=== PATIENT | male | born 1940 | race Caucasian/White ===

== ENCOUNTER 2021-11-11 12:28 | Outpatient (CLI) | payer MEDICARE, SELFPAY ==
--- NOTE | ~2021-11-11 | MR_ITS ---
EXAMINATION: MR brain IAC wo/w con DATE: 11/11/2021 13:56 INDICATION: Asymmetric hearing loss. TECHNIQUE: Magnetic resonance imaging (MRI) of the brain, brainstem, and internal auditory canals was performed without and with 16 mL MultiHance intravenous contrast. COMPARISON: None. FINDINGS: There is no intracranial hemorrhage, acute infarction, or abnormal intracranial mass lesion . The ventricles are normal in size. The internal auditory canals and inner ears are normal. There is a left mastoid effusion. The orbits are normal. There is mild mucosal thickening in the paranasal si nuses. IMPRESSION: 1. Normal brain. 2. Left mastoid effusion. Reviewed, dictated and finalized at location A.
== END 2021-11-11 12:29 | disposition home or self-care (01) ==
DX: H91.8X9 Other specified hearing loss, unspecified ear (principal); H92.02 Otalgia, left ear
CPT/HCPCS: 70553; A9577

== ENCOUNTER 2021-12-15 22:57 | Emergency (ER) | payer MEDICARE, SELFPAY ==
--- NOTE | ~2021-12-15 | XR_ITS ---
EXAMINATION: XR chest 2V DATE: 12/15/2021 23:18 INDICATION: Chest pain TECHNIQUE: frontal and lateral views of the chest were obtained. COMPARISON: Chest CT dated 08/14/2015 FINDINGS: Chronic eventration of the right hemidiaphragm. Minimal atelectasis at the right costophrenic angle. No other airspace opacities, pulmonary edema, pleural effusion or pneumothorax. Heart size is normal. Tortuous thoracic aorta. Small hiatal hernia. Severe thoracolumbar spondylosis. Suggestion of possi ble bilateral rotator cuff arthropathy. IMPRESSION: 1. Chronic eventration of the right hemidiaphragm with minimal right basilar atelectasis. 2. Small hiatal hernia. Reviewed, dictated and finalized at location A. IMPRESSION: 1. Chronic eventration of the right hemidiaphragm with minimal right basilar at electasis. 2. Small hiatal hernia.
--- NOTE | 2021-12-15 22:59 | ECG_ITS ---
Measurements Intervals [place] Rate: 63 P: 41 ME: 234 QRS: -18 QRSD: 166 T: 133 QT: 441 QTc: 452 Interpretive Statements SINUS RHYTHM WITH FIRST DEGREE AV BLOCK LEFT BUNDLE BRANCH BLOCK ABNORMAL ECG NO PREVIOUS ECG AVAILABLE FOR COMPARISON Electronically Signed On 12-16-2021 14:59:50 CDT by Kaveh Medina M.D.
[2021-12-15 23:22] VITALS: BP 185/88; PULSE 64; RESP 18; TEMP 36.4; O2SAT 99
[2021-12-15 23:37] LABS: Basophils Percent Auto 0.7 % (0.2-1.2); Eosinophils Absolute Auto 0.2 K/mm3 (0-0.3); Eosinophils Percent Auto 2.9 % (0-4.4); Hematocrit 40.2 % (42.0-52.0); Hemoglobin 13.7 g/dL (14.0-18.0); Immature Granulocyte Absolute 0.03 K/mm3 (0.00-0.031); Immature Granulocyte Percent A 0.5 % (0-0.5); Lymphocytes Absolute Auto 1.53 K/mm3 (0.9-3.2); Lymphocytes Percent Auto 26.1 % (18.3-44.2); Mean Corpuscular HGB Conc 34.1 g/dl (32-36); Mean Corpuscular Hemoglobin 30.6 pg (26-34); Mean Corpuscular Volume 89.9 fl (80-100); Mean Platelet Volume 8.9 fl (7.4-10.4); Monocytes Absolute Auto 0.5 K/mm3 (0.1-0.6); Neutrophils Absolute Auto 3.6 K/mm3 (1.3-6.7); Neutrophils Percent Auto 60.8 % (45.5-73.1); Platelet Count Result 175 k/mm3 (150-375); Red Blood Count 4.47 M/mm3 (4.6-6.20); Red Cell Distribution Width 13.6 % (11.5-14.5); White Blood Count 5.9 K/mm3 (4.5-10.0)
[2021-12-15 23:51] LABS: Alanine Aminotransferase 24 U/L (6-50); Albumin Level 4.3 g/dL (3.5-5.1); Alkaline Phosphatase 68 U/L (38-126); Anion Gap 11 mmol/L (8-16); Aspartate Amino Transferase 37 U/L (17-59); Bilirubin,Total 0.7 mg/dL (0.2-1.3); Blood Urea Nitrogen 15 mg/dL (9-20); Calcium 8.7 mg/dL (8.4-10.2); Carbon Dioxide 26 mmol/L (22-30); Chloride 96 mmol/L (98-107); Estimated CRCL calculation 74 ml/min; Estimated Glomerular Filt Rate > 60; Glucose 112 mg/dL (65-110); Lipase 116 U/L (23-300); Sodium 133 mmol/L (137-145)
[2021-12-15 23:54] LABS: INR 1.1; Prothrombin Time 13.4 Seconds (11.1-14.7)
[2021-12-15 23:55] LABS: Partial Thromboplastin Time 26.7 SECONDS (22.3-36.8)
[2021-12-16] VITALS (13 sets, daily range): BP systolic 153–195; BP diastolic 83–114; PULSE 49–72; RESP 11–19; O2SAT 95–98
[2021-12-16 00:02] LABS: Troponin I < 0.012 ng/mL (0.000-0.034)
--- NOTE | 2021-12-16 03:00 | ED.GENADULT ---
HPI - General Adult General Chief complaint: Chest Pain Stated complaint: elevated BP with mild CP Time Seen by Provider: 12/16/21 02:15 History of Present Illness HPI narrative: 81-year-old male presented the emergency department for evaluation of some sternal chest pain and elevated blood pressure. Patient states about 5 days ago he had a fall in the garden where he injured his chest wall. Patient states the chest wall pain is reproducible and is tender to palpation. Patient denies any associate shortness of breath. Patient denies any radiation of the pain. Patient states that this chest pain has been improving. Patient also admits that he has been having some increased life stressors due to a of a close friend and some other family stresses. Patient reports that his blood pressures have been elevated at home. Patient states his pressure normally runs in the 160s over 80s range but has been running more elevated. Patient reports he has been taking his medications as directed Related Data Allergies Allergy/AdvReac Type Severity Reaction Status Date / Time No Known Allergies Allergy Verified 12/16/21 02:06 Review of Systems Review of Systems: CONSTITUTIONAL: Denies fever, chills, or sweats. EYES: Denies visual changes, redness, or discharge. ENT: Denies rhinorrhea, congestion, sore throat, or otalgia. CARDIOVASCULAR: Hypertension and chest wall pain RESPIRATORY: Denies cough or dyspnea. GASTROINTESTINAL: Denies abdominal pain, nausea, vomiting, or diarrhea. GENITOURINARY: Denies dysuria or hematuria. SKIN: Denies rash or itching. MUSCULOSKELETAL: Denies back pain, joint pain, or myalgia. NEUROLOGIC: Denies headache, numbness, or weakness. PSYCHIATRIC: Denies anxiety or depression. Exam Narrative: APPEARANCE: Well appearing, no pain, no distress, well-nourished. HEAD: normocephalic, atraumatic. EYES: PERRLA/EOMI, conjunctivae clear. NOSE: Normal no drainage THROAT: Pharynx clear, no exudate. NECK: Supple. No adenopathy, no masses. RESPIRATORY: Airway patent, respirations nonlabored. Clear to auscultation bilaterally, no rales, rhonchi, wheezing. CARDIOVASCULAR: Regular rate and rhythm without murmurs rubs or gallops. ABDOMINAL: Soft, nontender, nondistended, normal bowel sounds MUSCULOSKELETAL: Moves all extremities. Strength/ROM intact, No edema, No calf tenderness. NEURO: Alert. Cranial nerves II through XII intact. Grossly intact SKIN: Warm, dry. Normal Color Course Course Emergency Course: Patient EKG shows sinus rhythm with first-degree AV block. Patient reports his blood pressure is normally on no 150s over 80s range. Patient's blood pressure did return to this range. Patient denies any complaints. Patient was in encouraged of close follow-up with her primary care physicians to see if they want to fine-tune his blood pressure meds. All questions and concerns were addressed. Vital Signs Vital signs: Vital Signs Temperature 97.5 F L 12/15/21 23:22 Pulse Rate 64 12/15/21 23:22 Respiratory Rate 18 12/15/21 23:22 Blood Pressure 185/88 H 12/15/21 23:22 Pulse Oximetry 99 12/15/21 23:22 Oxygen Delivery Room Air 12/15/21 23:22 Temperature 97.5 F L 12/15/21 23:22 Pulse Rate 54 L 12/16/21 03:17 Respiratory Rate 15 12/16/21 03:17 Blood Pressure 153/84 H 12/16/21 03:17 Pulse Oximetry 97 12/16/21 03:17 Oxygen Delivery Room Air 12/16/21 02:20 Medical Decision Making Vital Signs Vital Signs: Vital Signs Temperature 97.5 F L 12/15/21 23:22 Pulse Rate 64 12/15/21 23:22 Respiratory Rate 18 12/15/21 23:22 Blood Pressure 185/88 H 12/15/21 23:22 Pulse Oximetry 99 12/15/21 23:22 Oxygen Delivery Room Air 12/15/21 23:22 Temperature 97.5 F L 12/15/21 23:22 Pulse Rate 54 L 12/16/21 03:17 Respiratory Rate 15 12/16/21 03:17 Blood Pressure 153/84 H 12/16/21 03:17 Pulse Oximetry 97 12/16/21 03:17 Oxygen Delivery Room Air 12/16/21 02:20
[2021-12-16 03:17] LABS: Troponin I < 0.012 ng/mL (0.000-0.034)
== END 2021-12-16 03:35 | disposition home or self-care (01) ==
PROVIDERS: Emergency Provider Emergency Medicine; PCP Internal Medicine
DX: R07.89 Other chest pain (principal); I10 Essential (primary) hypertension
CPT/HCPCS: 36415; 71046; 80053; 83690; 84484; 85025; 85610; 85730; 93005; 99284

== ENCOUNTER 2024-07-03 13:29 | Outpatient (CLI) | payer MEDICARE, SELFPAY ==
--- NOTE | ~2024-07-03 | XR_ITS ---
Lumbosacral Spine: AP and lateral views Clinical History: Pain Findings: The normal lordotic curve is maintained. No acute fracture. There is 12 mm anterolisthesis of L5 over S1. There is severe degenerative disc narrowing throughout the lumbar spine. There is 4 mm retrolisthesis of L2 over L3. There are severe facet arthropathy from L3 through S1. The sacroiliac joints are normally outlined. Impression: Severe degenerative spondylosis, as above. 12 mm anterolisthesis of L5 over S1. 4 mm retrolisthesis of L2 over L3. Reviewed, dictated and finalized at location M. Impression: Severe degenerative spondylosis, as above. 12 mm anterolisthesis of L5 over S1. 4 mm retrolisthesis of L2 over L3.
== END 2024-07-03 13:30 | disposition home or self-care (01) ==
LOC: GOSHIMG 13:30
PROVIDERS: PCP Internal Medicine; Visit Provider Internal Medicine
DX: M47.816 Spondylosis without myelopathy or radiculopathy, lumbar region (principal); M43.17 Spondylolisthesis, lumbosacral region; M43.16 Spondylolisthesis, lumbar region
CPT/HCPCS: 72100